=== PATIENT | male | born 1940 | race Caucasian/White ===

== ENCOUNTER 2025-04-03 13:59 | Outpatient (CLI) | payer MEDICARE | END 2025-04-03 14:00 | disposition home or self-care (01) | LOC: LABBT 13:59 | PROVIDERS: ATTEND Internal Medicine Cardiovascular Disease | DX: Z01.818 Encounter for other preprocedural examination (principal); I48.0 Paroxysmal atrial fibrillation; G45.9 Transient cerebral ischemic attack, unspecified | CPT/HCPCS: 93005; 93010 ==

== ENCOUNTER 2025-05-24 11:36 | Outpatient (CLI) | payer MEDICARE ==
[2025-05-24 12:29] LABS: #Basophils 0.08 10x3/uL (0.0-0.2); #Eosinophils 0.13 10x3/uL (0.0-0.7); #Monocytes 1.38 10x3/uL (0.11-0.59); #Neutrophils 4.85 10x3/uL (1.40-6.50); %Basophils 0.8 % (0.0-1.0); %Eosinophils 1.3 % (0.0-10.0); %Lymphocytes 36.3 % (21.0-51.0); %Monocytes 13.5 % (0.0-10.0); %Neutrophils 47.3 % (42.0-75.0); Hematocrit 48.8 % (42.0-52.0); Hemoglobin 15.5 g/dL (14.0-18.0); Mean Corpuscular Hemoglobin 30.3 pg (27.0-31.0); Mean Corpuscular Volume 95.5 fL (78.0-98.0); Platelet Count 241 10x3/uL (130-400); Red Blood Cell (RBC) Count 5.11 mill/uL (4.70-6.10); White Blood Cell (WBC) Count 10.24 10x3/uL (4.8-10.8)
[2025-05-24 12:42] LABS: INR-International Normal Ratio 1.0; Prothrombin Time 13.3 sec (12.0-14.7)
[2025-05-24 12:43] LABS: Anion Gap 14 mmol/L (10-20); BUN (Urea Nitrogen) 12 mg/dL (8.4-25.7); Calc. Creatinine Clearance 0 mL/min (70-130); Calcium 9.7 mg/dL (7.8-10.44); Carbon Dioxide 25 mmol/L (23-31); Chloride 106 mmol/L (98-107); Glucose 111 mg/dL (83-110); PTT 30.9 sec (22.9-36.1); Potassium 4.1 mmol/L (3.5-5.1); Sodium 141 mmol/L (136-145)
== END 2025-05-24 11:37 | disposition home or self-care (01) ==
LOC: LABBT 11:36
PROVIDERS: ATTEND Internal Medicine Cardiovascular Disease
DX: Z01.812 Encounter for preprocedural laboratory examination (principal); Z91.81 History of falling; I48.0 Paroxysmal atrial fibrillation
CPT/HCPCS: 80048; 85025; 85610; 85730